=== PATIENT | female | born 1985 | race Caucasian/White ===

== ENCOUNTER 2018-09-04 18:40 | Inpatient (IN) | payer MEDICAID ==
[~2018-09-04] VITALS: Ht 167.6 cm; Wt 90.5 kg
[2018-09-10 13:25] VITALS: BP 129/76
== END 2018-09-10 15:17 | disposition home or self-care (01) | DRG 347 ==
LOC: ED 21:42 → EDIP 21:48 → 4NOR 22:17 → 4WST 09-07 19:38
PROVIDERS: ADMIT Internal Medicine; ATTEND Internal Medicine
PROC: 0T9B70Z Drainage of Bladder with Drainage Device, Via Natural or Artificial Opening (ICD-10-PCS; 2018-09-04)
PROC: 0JPT0WZ Removal of Totally Implantable Vascular Access Device from Trunk Subcutaneous Tissue and Fascia, Open Approach (ICD-10-PCS; principal; 2018-09-09)
DX: M43.16 Spondylolisthesis, lumbar region (principal); M35.2 Behcet's disease; E27.49 Other adrenocortical insufficiency; F11.20 Opioid dependence, uncomplicated; I48.91 Unspecified atrial fibrillation; M54.40 Lumbago with sciatica, unspecified side; E87.6 Hypokalemia; Z91.018 Allergy to other foods; Z88.8 Allergy status to other drugs, medicaments and biological substances; M45.9 Ankylosing spondylitis of unspecified sites in spine; K31.89 Other diseases of stomach and duodenum; R11.2 Nausea with vomiting, unspecified; F41.9 Anxiety disorder, unspecified; G47.00 Insomnia, unspecified; G89.29 Other chronic pain; J45.909 Unspecified asthma, uncomplicated; J98.11 Atelectasis; M06.9 Rheumatoid arthritis, unspecified; Z79.899 Other long term (current) drug therapy; Z82.49 Family history of ischemic heart disease and other diseases of the circulatory system; Z87.442 Personal history of urinary calculi; Z90.5 Acquired absence of kidney; Z76.5 Malingerer [conscious simulation]; Z90.49 Acquired absence of other specified parts of digestive tract; Z88.6 Allergy status to analgesic agent; Z88.1 Allergy status to other antibiotic agents
CPT/HCPCS: 36415; 36590; 70450; 71045; 71275; 72110; 77001; 80053; 80307; 81003; 83690; 84484; 85025; 85379; 85610; 85651; 86140; 93005; 94640; 96374; 99285; G0378; J1170; J1644; J1885; J2405; J2704; J3360; J7500; J7613; Q0162; Q9967; J2270; J7030

== ENCOUNTER 2018-09-17 10:02 | Emergency (ER) | payer MEDICAID ==
[~2018-09-17] VITALS: Ht 167.6 cm; Wt 84.0 kg
[~2018-09-17 10:02] MED LIST: ADVAIR; AZAT50TA9 PO; BUSP5TAB2 PO; DIAZ5TAB PO; DULO20CA45 PO; ESOM20CA PO; FLUO10CA13 PO; GABA300C10 PO; HYDR2TAB29 PO; HYDROCORTISONE PO; LEVA15HF4 INH; LORA-247 PO; METH500T7 PO; ZOLP10TA PO
[2018-09-17] MEDS ORDERED: SODIUM CHLORIDE 0.9% 1,000ML IVBOLUS ONE (11:00)
[2018-09-17] MEDS ORDERED: SODIUM CHLORIDE FLUSH 10ML SYR IVF ONE (11:00)
[2018-09-17] MEDS ORDERED: ONDANSETRON 2MG/ML, 2ML IVPush ONE (11:00)
--- NOTE | 2018-09-17 11:10 | NUR ---
LAB AT BEDSIDE
[2018-09-17 11:17] LABS: BASOPHILS # (AUTO) 0.04 x10^3/uL (0-0.1); BASOPHILS % (AUTO) 1 % (0-1); EOSINOPHILS % (AUTO) 1 % (1-7); LYMPHOCYTES # (AUTO) 1.24 x10^3/uL (1-3.4); LYMPHOCYTES % (AUTO) 17 % (22-44); MD NO; MEAN CORPUSCULAR HEMOGLOBIN 26.3 pg (27.0-34.8); MEAN CORPUSCULAR VOLUME 84.7 fL (80-100); MEAN PLATELET VOLUME 10.2 fL (7.4-10.4); MONOCYTES # (AUTO) 0.48 x10^3/uL (0.2-0.8); MONOCYTES % (AUTO) 7 % (2-9); NEUTROPHILS # (AUTO) 5.46 x10^3/uL (1.8-6.8); NEUTROPHILS % (AUTO) 75 % (42-75); PLATELET COUNT 317 x10^3/uL (130-400); RED BLOOD COUNT 4.63 x10^6/uL (3.82-5.3); RED CELL DISTRIBUTION WIDTH 16.2 % (9.6-15.2)
[2018-09-17 11:28] LABS: ALANINE AMINOTRANSFERASE 16 U/L (12-78); ALBUMIN 3.4 g/dL (3.4-5.0); ANION GAP 5 mmol/L (5-15); CALCIUM 8.8 mg/dL (8.5-10.1); CHLORIDE 110 mmol/L (98-107)
[2018-09-17] MEDS ORDERED: ONDANSETRON 2MG/ML, 2ML ONE (11:41)
--- NOTE | 2018-09-17 11:46 | NUR ---
LEFT ARM PIV PLACED W/ US -THEN MEDICATED PER EMAR
--- NOTE | 2018-09-17 11:50 | NUR ---
PATIENT VERY UNHAPPY WITH "THE TYPE OF CARE THIS SO CALLED MD IS GIVING ME. I'M IN IMMENSE PAIN. I NEED DIALUDID." MANAGER COMPETITIVE INTELLIGENCE RE-DIRECTED, PROVIDER MADE AWARE
[2018-09-17 12:09] LABS: ALKALINE PHOSPHATASE 82 U/L (45-117); BILIRUBIN,TOTAL 0.3 mg/dL (0.2-1.0); CREATININE 0.79 mg/dL (0.55-1.02); TOTAL PROTEIN 6.8 g/dL (6.4-8.2)
[2018-09-17 12:10] VITALS: BP 138/77
--- NOTE | 2018-09-17 12:20 | NUR ---
PATIENT ASKING FOR AMA PAPERWORK "I'LL GO TO [facility]. THEY ACTUALLY TREAT PAIN THERE." PROVIDER TO BEDSIDE PATIENT HAS HAD BLOOD WORK/ZOFRAN/IVF. REFUSED CT SCAN.
[2018-11-23] MEDS ORDERED: HYDR10TA PO (03:23)
[2018-11-23] MEDS ORDERED: HYDR20TA PO (03:23)
[2018-11-24] MEDS ORDERED: METO50TA82 PO (12:29)
== END 2018-09-17 12:46 | disposition left against medical advice (07) ==
LOC: ED 10:59
DX: R07.2 Precordial pain (principal); G89.29 Other chronic pain; R10.13 Epigastric pain; R55 Syncope and collapse; R06.02 Shortness of breath; M06.9 Rheumatoid arthritis, unspecified
CPT/HCPCS: 36415; 80053; 83690; 85025; 93005; 96361; 96374; 99284; J2405; J7030

== ENCOUNTER 2019-05-03 13:26 | Emergency (ER) | payer OTHER ==
[~2019-05-03] VITALS: Ht 167.6 cm; Wt 82.9 kg
[~2019-05-03 13:26] MED LIST changes: +HYDR10TA PO; +HYDR20TA PO; +METO50TA82 PO
[2019-05-03] MEDS ORDERED: SODIUM CHLORIDE FLUSH 10ML SYR IVF ONE (17:00)
--- NOTE | 2019-05-03 17:00 | NUR ---
BREAK RN: PT TO ROOM FROM LOBBY
[2019-05-03 17:14] LABS: BASOPHILS % (AUTO) 0 % (0-1); EOSINOPHILS % (AUTO) 1 % (1-7); LYMPHOCYTES # (AUTO) 1.09 x10^3/uL (1-3.4); LYMPHOCYTES % (AUTO) 14 % (22-44); MD NO; MEAN CORPUSCULAR HEMOGLOBIN 29.1 pg (27.0-34.8); MEAN CORPUSCULAR HGB CONC 33.1 g/dL (32.4-35.8); MEAN CORPUSCULAR VOLUME 87.9 fL (80-100); MEAN PLATELET VOLUME 9.5 fL (7.4-10.4); MONOCYTES # (AUTO) 0.41 x10^3/uL (0.2-0.8); MONOCYTES % (AUTO) 5 % (2-9); NEUTROPHILS # (AUTO) 6.13 x10^3/uL (1.8-6.8); NEUTROPHILS % (AUTO) 79 % (42-75); PLATELET COUNT 285 x10^3/uL (130-400); RED BLOOD COUNT 4.53 x10^6/uL (3.82-5.3); RED CELL DISTRIBUTION WIDTH 14.5 % (9.6-15.2)
[2019-05-03 17:23] LABS: ALANINE AMINOTRANSFERASE 22 U/L (12-78); ALBUMIN 3.8 g/dL (3.4-5.0); ANION GAP 8 mmol/L (5-15); CALCIUM 8.9 mg/dL (8.5-10.1); CHLORIDE 106 mmol/L (98-107)
[2019-05-03 17:28] LABS: ALKALINE PHOSPHATASE 117 U/L (45-117); BILIRUBIN,TOTAL 0.4 mg/dL (0.2-1.0); CREATININE 0.74 mg/dL (0.55-1.02); TOTAL PROTEIN 7.5 g/dL (6.4-8.2); TROPONIN I < 0.015 ng/mL (0.000-0.045)
--- NOTE | 2019-05-03 17:58 | NUR ---
Resting in [facility]. NAD. No needs.
[2019-05-03 18:48] VITALS: BP 118/76
--- NOTE | 2019-05-03 18:49 | NUR ---
VSS. No needs
--- NOTE | 2019-05-03 19:47 | NUR ---
Patient/Caregiver given discharge instructions and they have confirmed that they understand the instructions. Patient ambulatory with steady gait.
== END 2019-05-03 19:51 | disposition home or self-care (01) ==
LOC: ED 19:34
DX: R10.13 Epigastric pain (principal); R10.11 Right upper quadrant pain; R11.0 Nausea; I48.91 Unspecified atrial fibrillation; R94.31 Abnormal electrocardiogram [ECG] [EKG]; Z90.89 Acquired absence of other organs
CPT/HCPCS: 36415; 71045; 76700; 80053; 83880; 84484; 85025; 93005; 99285

== ENCOUNTER 2019-09-18 22:28 | Emergency (ER) | payer OTHER ==
[~2019-09-18] VITALS: Ht 167.6 cm; Wt 91.6 kg
[2019-09-18] MEDS ORDERED: ASPIRIN 81 MG TABLET CHEW ONE (22:58)
[2019-09-18] MEDS ORDERED: ONDANSETRON 2MG/ML, 2ML ONE (22:58)
[2019-09-18] MEDS ORDERED: MORPHINE SULFATE 4 MG/ML, 1ML ONE (22:58)
[2019-09-18] MEDS ORDERED: ASPIRIN 81 MG TABLET CHEW PO ONE (23:00)
[2019-09-18] MEDS ORDERED: ONDANSETRON 2MG/ML, 2ML IVPush ONE (23:00)
--- NOTE | 2019-09-18 23:09 | NUR ---
THIS IS A 33 YO FEMALE COMING IN FOR CHEST PAIN THAT CAME ON SUDDENLY AT 2100. "I FEEL LIKE THERE IS A BALLON IS INFLATING IN MY CHEST" , DESCRIBED PRESSURE WITH SHARP STABBING PAIN IN MIDDLE OF BACK. 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 ALL MONITORING IN PLACE, PATIENT C/O NAUSEA. A&OX4, VSS, NADN, CALL LIGHT IN REACH.
[2019-09-19] MEDS: MORPHINE SULFATE 4 MG/ML, 1ML IVPush PRN ×2 (00:04→00:43)
--- NOTE | 2019-09-19 00:05 | NUR ---
PIV PLACED, MEDICATED PER EMAR
[2019-09-19 00:21] LABS: ALANINE AMINOTRANSFERASE 16 U/L (12-78); ALBUMIN 3.2 g/dL (3.4-5.0); ANION GAP 8 mmol/L (5-15); CALCIUM 7.9 mg/dL (8.5-10.1); CHLORIDE 109 mmol/L (98-107)
[2019-09-19 00:22] LABS: BASOPHILS # (AUTO) 0.07 x10^3/uL (0-0.1); BASOPHILS % (AUTO) 1 % (0-1); EOSINOPHILS # (AUTO) 0.43 x10^3/uL (0-0.4); EOSINOPHILS % (AUTO) 6 % (1-7); LYMPHOCYTES # (AUTO) 1.31 x10^3/uL (1-3.4); LYMPHOCYTES % (AUTO) 18 % (22-44); MD NO; MEAN CORPUSCULAR HEMOGLOBIN 28.9 pg (27.0-34.8); MEAN CORPUSCULAR HGB CONC 32.6 g/dL (32.4-35.8); MEAN CORPUSCULAR VOLUME 88.5 fL (80-100); MEAN PLATELET VOLUME 10.4 fL (7.4-10.4); MONOCYTES # (AUTO) 0.52 x10^3/uL (0.2-0.8); MONOCYTES % (AUTO) 7 % (2-9); NEUTROPHILS # (AUTO) 4.89 x10^3/uL (1.8-6.8); NEUTROPHILS % (AUTO) 68 % (42-75); PLATELET COUNT 259 x10^3/uL (130-400); RED BLOOD COUNT 4.01 x10^6/uL (3.82-5.3); RED CELL DISTRIBUTION WIDTH 14.3 % (9.6-15.2)
[2019-09-19 00:26] LABS: ALKALINE PHOSPHATASE 95 U/L (45-117); BILIRUBIN,TOTAL 0.3 mg/dL (0.2-1.0); CREATININE 0.92 mg/dL (0.55-1.02); TOTAL PROTEIN 6.5 g/dL (6.4-8.2); TROPONIN I < 0.015 ng/mL (0.000-0.045)
[2019-09-19] MEDS ORDERED: MORPHINE SULFATE 4 MG/ML, 1ML ONE ×2 (00:36→02:17)
--- NOTE | 2019-09-19 00:44 | NUR ---
PATIENT MEDICATED PER EMAR FOR NO CHANGE IN PAIN. TOELRATED WELL. PATIENT TAKEN TO CT
[2019-09-19 01:21] VITALS: BP 109/40
--- NOTE | 2019-09-19 01:22 | NUR ---
PATIENT SITTING UP IN [facility], STATES PAIN IS NOW AT A 7/10 FROM A PREVIOUS 8-9/10. ERP NOTIFIED. MONITORING IN PLACE, CALL LIGHT IN REACH
[2019-09-19] MEDS ORDERED: ONDANSETRON 2MG/ML, 2ML ONE (01:50)
--- NOTE | 2019-09-19 01:54 | NUR ---
ALL RESULTS BACK AT THIS TIME, PATIENT UP FOR RECHECK
[2019-09-19] MEDS ORDERED: LORazepam 2 MG/ML, 1ML ONE (02:17)
[2019-09-19] MEDS ORDERED: OMNIPAQUE 350 MG/ML, 100ML BOTTLE ONE (02:26)
[2019-09-19] MEDS ORDERED: LORazepam 2 MG/ML, 1ML IVPush ONE (02:30)
[2019-09-19] MEDS ORDERED: MORPHINE SULFATE 4 MG/ML, 1ML IVPush ONE (02:30)
[2019-09-19] MEDS ORDERED: ONDANSETRON 2MG/ML, 2ML IVPush ONE (02:30)
--- NOTE | 2019-09-19 02:31 | NUR ---
PATIENT MEDICATED PER EMAR, TOLERATED WELL. GIVEN DISCHARGE PAPERWORK AND INSTRUCTIONS AND VERBALIZES UNDERSTANDING AND NEED FOR FOLLOW UP APPT. VSS UPON DISCHARGE. PIV REMOVED.
== END 2019-09-19 02:45 | disposition home or self-care (01) ==
LOC: ED 22:58
DX: R07.89 Other chest pain (principal); R00.0 Tachycardia, unspecified; R11.0 Nausea; I48.91 Unspecified atrial fibrillation; M06.9 Rheumatoid arthritis, unspecified; Z90.5 Acquired absence of kidney; Z90.89 Acquired absence of other organs; Z86.718 Personal history of other venous thrombosis and embolism
CPT/HCPCS: 36415; 71045; 71275; 80053; 84484; 84703; 85025; 93005; 96374; 96375; 96376; 99285; J2060; J2270; J2405; Q9967

== ENCOUNTER 2019-09-28 22:36 | Emergency (ER) | payer OTHER ==
[~2019-09-28] VITALS: Ht 167.6 cm; Wt 85.0 kg
[2019-09-28] MEDS ORDERED: MORPHINE SULFATE 4 MG/ML, 1ML ONE (22:48)
[2019-09-28] MEDS ORDERED: ONDANSETRON 2MG/ML, 2ML ONE (22:48)
[2019-09-28] MEDS ORDERED: SODIUM CHLORIDE FLUSH 10ML SYR IVF ONE (23:00)
[2019-09-28] MEDS ORDERED: ONDANSETRON 2MG/ML, 2ML IVPush ONE (23:00)
[2019-09-28] MEDS ORDERED: SODIUM CHLORIDE 0.9% 1,000ML IVBOLUS ONE (23:00)
[2019-09-28] MEDS: MORPHINE SULFATE 4 MG/ML, 1ML IVPush PRN (23:42)
[2019-09-28 23:45] LABS: BASOPHILS # (AUTO) 0.04 x10^3/uL (0-0.1); BASOPHILS % (AUTO) 0 % (0-1); EOSINOPHILS # (AUTO) 0.18 x10^3/uL (0-0.4); EOSINOPHILS % (AUTO) 2 % (1-7); LYMPHOCYTES # (AUTO) 1.51 x10^3/uL (1-3.4); LYMPHOCYTES % (AUTO) 15 % (22-44); MD NO; MEAN CORPUSCULAR HEMOGLOBIN 28.7 pg (27.0-34.8); MEAN CORPUSCULAR HGB CONC 32.8 g/dL (32.4-35.8); MEAN CORPUSCULAR VOLUME 87.6 fL (80-100); MEAN PLATELET VOLUME 9.9 fL (7.4-10.4); MONOCYTES % (AUTO) 7 % (2-9); NEUTROPHILS # (AUTO) 7.44 x10^3/uL (1.8-6.8); NEUTROPHILS % (AUTO) 75 % (42-75); PLATELET COUNT 336 x10^3/uL (130-400); RED BLOOD COUNT 4.37 x10^6/uL (3.82-5.3); RED CELL DISTRIBUTION WIDTH 14.3 % (9.6-15.2)
[2019-09-28 23:53] LABS: ALANINE AMINOTRANSFERASE 16 U/L (12-78); ALBUMIN 3.4 g/dL (3.4-5.0); ANION GAP 7 mmol/L (5-15); CALCIUM 8.5 mg/dL (8.5-10.1); CHLORIDE 109 mmol/L (98-107)
[2019-09-28 23:56] LABS: ALKALINE PHOSPHATASE 106 U/L (45-117); BILIRUBIN,TOTAL 0.4 mg/dL (0.2-1.0); CREATININE 0.86 mg/dL (0.55-1.02); TOTAL PROTEIN 7.2 g/dL (6.4-8.2)
--- NOTE | 2019-09-29 00:17 | NUR ---
Patient presents to ER c/o RUQ abd pain. Patient has an extensive medical hx and states gallbladder problems are one of them. Patient also c/o N/V. Symptoms started tonight. Patient states she ate dinner around 1830 then around 1900, the pain/cramping started. While waiting to be seen, patient experienced a syncopal episode from pain. Patient denies trauma. Patient is in obvious pain. Respirations even and unlabored.
[2019-09-29 00:45] VITALS: BP 127/80
[2019-09-29] MEDS ORDERED: MORPHINE SULFATE 4 MG/ML, 1ML ONE ×2 (00:47→01:45)
[2019-09-29] MEDS: MORPHINE SULFATE 4 MG/ML, 1ML IVPush PRN (00:49)
[2019-09-29] MEDS ORDERED: ONDANSETRON 2MG/ML, 2ML ONE (01:45)
--- NOTE | 2019-09-29 01:54 | NUR ---
Discharge instructions given. All questions and concerns addressed. Patient ambulatory with a steady gait. Belongings with patient.
[2019-09-29] MEDS ORDERED: MORPHINE SULFATE 4 MG/ML, 1ML IVPush ONE (02:00)
[2019-09-29] MEDS ORDERED: ONDANSETRON 2MG/ML, 2ML IVPush ONE (02:00)
== END 2019-09-29 02:05 | disposition home or self-care (01) ==
LOC: ED 09-29 01:16
DX: R10.11 Right upper quadrant pain (principal); R11.2 Nausea with vomiting, unspecified; M06.9 Rheumatoid arthritis, unspecified; I48.91 Unspecified atrial fibrillation; R94.31 Abnormal electrocardiogram [ECG] [EKG]; E66.9 Obesity, unspecified; Z68.30 Body mass index [BMI] 30.0-30.9, adult; Z90.5 Acquired absence of kidney; Z90.89 Acquired absence of other organs; Z86.718 Personal history of other venous thrombosis and embolism
CPT/HCPCS: 36415; 76700; 80053; 83690; 84703; 85025; 93005; 96361; 96374; 96375; 96376; 99285; J2270; J2405; J7030

== ENCOUNTER 2020-03-28 13:34 | Emergency (ER) | payer OTHER ==
[~2020-03-28] VITALS: Ht 167.6 cm; Wt 97.7 kg
[~2020-03-28 13:34] MED LIST changes: +METH-639 PO; -METH500T7 PO
[2020-03-28] MEDS ORDERED: HYDROcodone/APAP 5/325 TABLET PO PRN (14:30)
[2020-03-28] MEDS ORDERED: HYDROcodone/APAP 5/325 TABLET ONE (14:31)
[2020-03-28 16:03] VITALS: BP 135/87
== END 2020-03-28 16:15 | disposition home or self-care (01) ==
LOC: ED 16:09
DX: S63.511A Sprain of carpal joint of right wrist, initial encounter (principal); S80.812A Abrasion, left lower leg, initial encounter; M79.89 Other specified soft tissue disorders; W01.0XXA Fall on same level from slipping, tripping and stumbling without subsequent striking against object, initial encounter; Y93.89 Activity, other specified; Y92.89 Other specified places as the place of occurrence of the external cause; Y99.8 Other external cause status
CPT/HCPCS: 99283

== ENCOUNTER 2020-05-14 01:46 | Emergency (ER) | payer OTHER ==
[~2020-05-14] VITALS: Ht 167.6 cm; Wt 95.0 kg
[2020-05-14] MEDS ORDERED: SODIUM CHLORIDE 0.9% 1,000ML IVBOLUS ONE (02:00)
[2020-05-14] MEDS ORDERED: ONDANSETRON 2MG/ML, 2ML IVPush ONE (02:00)
[2020-05-14] MEDS ORDERED: SODIUM CHLORIDE FLUSH 10ML SYR IVF ONE (02:00)
[2020-05-14] MEDS ORDERED: ONDANSETRON 2MG/ML, 2ML ONE (02:10)
--- NOTE | 2020-05-14 02:19 | NUR ---
IV started blood drawn and sent, IVF wide open, medicated per order. Pt asking for valium, says thats the only thing that works for her nausea.
[2020-05-14 02:24] LABS: BASOPHILS % (AUTO) 1 % (0-1); EOSINOPHILS % (AUTO) 3 % (1-7); LYMPHOCYTES % (AUTO) 15 % (22-44); MEAN CORPUSCULAR HEMOGLOBIN 29.4 pg (27.0-34.8); MEAN CORPUSCULAR HGB CONC 33.7 g/dL (32.4-35.8); MEAN PLATELET VOLUME 9.4 fL (7.4-10.4); MONOCYTES % (AUTO) 7 % (2-9); NEUTROPHILS % (AUTO) 74 % (42-75); PLATELET COUNT 309 x10^3/uL (130-400); RED CELL DISTRIBUTION WIDTH 13.9 % (9.6-15.2)
[2020-05-14 02:28] LABS: MD NO
[2020-05-14 02:30] LABS: ALANINE AMINOTRANSFERASE 22 U/L (12-78); ALBUMIN 3.6 g/dL (3.4-5.0); ANION GAP 4 mmol/L (5-15); CALCIUM 8.7 mg/dL (8.5-10.1); CHLORIDE 106 mmol/L (98-107); CREATININE 0.79 mg/dL (0.55-1.02)
[2020-05-14 02:35] LABS: ALKALINE PHOSPHATASE 108 U/L (45-117); BILIRUBIN,TOTAL 0.2 mg/dL (0.2-1.0); TOTAL PROTEIN 7.7 g/dL (6.4-8.2); TROPONIN I < 0.015 ng/mL (0.000-0.045)
--- NOTE | 2020-05-14 03:09 | NUR ---
TASK RN. HYACINTH COLLECTED AND SENT TO LAB. PT UP TO BATHROOM WITH SBA.
[2020-05-14 03:23] LABS: MICROSCOPIC NOT IND
[2020-05-14 03:25] VITALS: BP 98/76
--- NOTE | 2020-05-14 04:02 | NUR ---
Patient/Caregiver given discharge instructions and they have confirmed that they understand the instructions. Patient ambulatory with steady gait.
== END 2020-05-14 04:03 | disposition home or self-care (01) ==
LOC: ED 03:52
DX: R11.2 Nausea with vomiting, unspecified (principal); R10.84 Generalized abdominal pain; R55 Syncope and collapse; R42 Dizziness and giddiness; M06.9 Rheumatoid arthritis, unspecified; I48.91 Unspecified atrial fibrillation
CPT/HCPCS: 36415; 70450; 80053; 80320; 81003; 83690; 84484; 84703; 85025; 93005; 96361; 96374; 99285; J2405; J7030; G0480

== ENCOUNTER 2020-10-30 11:40 | Emergency (ER) | payer OTHER ==
--- NOTE | 2020-10-30 12:00 | NUR ---
WITH ASSESSMENT LUNGS/ THROAT COMPLETELY CLEAR WHEN PATIENT ASKED QUESTIONS QUICKLY- UPPER AIRWAY NOISES NO LONGER AUDIBLE. SHUTTLE VENEERING SUPERVISOR SUSPICIOUS ERP TO BEDSIDE. TO MOVE TO LOW ACUITY ROOM
--- NOTE | 2020-10-30 12:29 | NUR ---
assuming care of pt after report from anum. pt moved to room 6. [facility].
[2020-10-30] MEDS ORDERED: DEXAMETHASONE 4 MG TABLET PO ONE (12:30)
[2020-10-30] MEDS ORDERED: DEXAMETHASONE 4 MG TABLET ONE (12:31)
[2020-10-30 12:44] LABS: BASOPHILS % (AUTO) 1 % (0-1); EOSINOPHILS % (AUTO) 1 % (1-7); LYMPHOCYTES % (AUTO) 17 % (22-44); MEAN CORPUSCULAR HEMOGLOBIN 28.5 pg (27.0-34.8); MEAN CORPUSCULAR HGB CONC 33.4 g/dL (32.4-35.8); MEAN PLATELET VOLUME 9.9 fL (7.4-10.4); MONOCYTES % (AUTO) 7 % (2-9); NEUTROPHILS % (AUTO) 73 % (42-75); PLATELET COUNT 288 x10^3/uL (130-400); RED BLOOD COUNT 4.62 x10^6/uL (3.82-5.3); RED CELL DISTRIBUTION WIDTH 14.3 % (9.6-15.2)
[2020-10-30 12:55] LABS: ALBUMIN 3.5 g/dL (3.4-5.0); ANION GAP 6 mmol/L (5-15); CHLORIDE 108 mmol/L (98-107)
[2020-10-30 13:02] LABS: CREATININE 0.78 mg/dL (0.55-1.02); TROPONIN I < 0.015 ng/mL (0.000-0.045)
--- NOTE | 2020-10-30 13:12 | NUR ---
pt with steady gait to bathroom. vss. saab
[2020-10-30] MEDS ORDERED: LEVOFLOXACIN 750 MG TABLET ONE (13:58)
[2020-10-30] MEDS ORDERED: POTASSIUM CHLORIDE 20 MEQ TAB.ER.PRT ONE (13:58)
[2020-10-30] MEDS ORDERED: POTASSIUM CHLORIDE 20 MEQ TAB.ER.PRT PO ONE (14:00)
[2020-10-30] MEDS ORDERED: LEVOFLOXACIN 750 MG TABLET PO ONE (14:00)
[2020-10-30 14:03] VITALS: BP 142/98
--- NOTE | 2020-10-30 14:54 | NUR ---
Patient given discharge instructions and they have confirmed that they understand the instructions. Patient ambulatory with steady gait. NAD, all questions answered appropriately, denies additional needs at this time. No personal belongings left in room after discharge.
== END 2020-10-30 14:55 | disposition home or self-care (01) ==
LOC: ED 14:30
DX: J15.9 Unspecified bacterial pneumonia (principal); R07.89 Other chest pain; I48.91 Unspecified atrial fibrillation
CPT/HCPCS: 36415; 70360; 71045; 80048; 82040; 84484; 85025; 93005; 99285

== ENCOUNTER 2020-10-31 06:48 | Inpatient (IN) | payer SELFPAY ==
[~2020-10-31] VITALS: Ht 167.6 cm; Wt 101.9 kg
--- NOTE | 2020-10-31 07:25 | NUR ---
PT BIB SELF D/T RECHECK AFTER BEING SEEN IN THIS ER YESTERDAY. PT STATES SHE ALSO IS HAVING SEVERE JOINT PAIN TODAY. PT HR 130S. PT REPORTS FEELING PAIN ALL OVER HER BODY AND FEELING VERY SHAKY. PT RESTING IN [facility], MONITORING IN PLACE, EKG DONE, NADN AT THIS TIME, WCTM.
[2020-10-31] MEDS ORDERED: LORazepam 2 MG/ML, 1ML IVPush ONE (07:30)
[2020-10-31] MEDS ORDERED: KETOROLAC 30 MG/1 ML IVPush ONE (07:30)
[2020-10-31] MEDS ORDERED: SODIUM CHLORIDE 0.9% 1,000ML IVBOLUS ONE (07:30)
[2020-10-31] MEDS ORDERED: ACETAMINOPHEN 325 MG TABLET PO ONE (07:30)
[2020-10-31] MEDS ORDERED: KETOROLAC 30 MG/1 ML ONE (07:46)
[2020-10-31] MEDS ORDERED: LORazepam 2 MG/ML, 1ML ONE (07:47)
[2020-10-31] MEDS ORDERED: ACETAMINOPHEN 325 MG TABLET ONE (07:47)
[2020-10-31 08:24] LABS: BASOPHILS % (AUTO) 0 % (0-1); EOSINOPHILS % (AUTO) 0 % (1-7); LYMPHOCYTES % (AUTO) 6 % (22-44); MEAN CORPUSCULAR HEMOGLOBIN 27.7 pg (27.0-34.8); MEAN CORPUSCULAR HGB CONC 32.6 g/dL (32.4-35.8); MEAN PLATELET VOLUME 9.8 fL (7.4-10.4); MONOCYTES % (AUTO) 4 % (2-9); NEUTROPHILS % (AUTO) 90 % (42-75); PLATELET COUNT 330 x10^3/uL (130-400); RED BLOOD COUNT 4.64 x10^6/uL (3.82-5.3); RED CELL DISTRIBUTION WIDTH 14.1 % (9.6-15.2)
[2020-10-31 08:30] LABS: ALANINE AMINOTRANSFERASE 24 U/L (12-78); ALBUMIN 3.6 g/dL (3.4-5.0); ANION GAP 9 mmol/L (5-15); CALCIUM 9.5 mg/dL (8.5-10.1); CHLORIDE 110 mmol/L (98-107); CREATININE 0.69 mg/dL (0.55-1.02)
[2020-10-31] MEDS ORDERED: LORazepam 1MG TABLET ONE (08:30)
[2020-10-31] MEDS ORDERED: LORazepam 1MG TABLET PO ONE (08:30)
[2020-10-31 08:35] LABS: ALKALINE PHOSPHATASE 108 U/L (45-117); BILIRUBIN,TOTAL 0.4 mg/dL (0.2-1.0); TOTAL PROTEIN 7.7 g/dL (6.4-8.2); TROPONIN I < 0.015 ng/mL (0.000-0.045)
[2020-10-31 08:59] LABS: FREE T4 (FREE THYROXINE) 0.89 ng/dL (0.76-1.46)
[2020-10-31] MEDS ORDERED: OMNIPAQUE 350 MG/ML, 75ML BOTTLE ONE (11:03)
[2020-10-31] MEDS ORDERED: ONDANSETRON 2MG/ML, 2ML ONE (11:34)
[2020-10-31] MEDS ORDERED: MORPHINE SULFATE 4 MG/ML, 1ML ONE ×2 (11:35→13:02)
[2020-10-31] MEDS: MORPHINE SULFATE 4 MG/ML, 1ML IVPush PRN ×3 (11:38→22:36)
[2020-10-31] MEDS ORDERED: ONDANSETRON 2MG/ML, 2ML IVPush ONE (12:00)
--- NOTE | 2020-10-31 12:05 | NUR ---
TASK RN NOTE: PT SITTING UP IN BED, RESPIRATIONS EVEN AND UNLABORED ON RA. PT TEXTING DAUGHTER, TELEVISION ON. NAD NOTED AT THIS TIME. CALL LIGHT IN REACH.
[2020-10-31] MEDS ORDERED: HYDROCORTISONE 10 MG TABLET PO ONE (12:10)
[2020-10-31 12:51] LABS: HCT (SEDRATE) 39.4 % (34.6-47.8)
[2020-10-31] MEDS ORDERED: ACETAMINOPHEN 325 MG TABLET PO PRN (14:00)
[2020-10-31] MEDS ORDERED: ENOXAPARIN 40 MG/0.4 ML SQ SCH (14:00)
[2020-10-31] MEDS ORDERED: MELATONIN 5 MG TABLET PO PRN (14:00)
[2020-10-31] MEDS ORDERED: ENALAPRILAT 1.25 MG/ML, 2ML IVPush PRN (14:00)
[2020-10-31] MEDS: LACTATED RINGERS 1,000 ML IV SCH (14:00)
[2020-10-31] MEDS ORDERED: POLYETHYLENE GLYCOL 17 GM PACKET PO PRN (14:00)
[2020-10-31 14:26] VITALS: BP 114/74
--- NOTE | 2020-10-31 14:30 | NUR ---
PATIENT TRANSFERRED TO CARDIAC TELE IN STABLE CONDITION VIA GURNEY WITH COMMODITY BUYER. ALL PATIENT BELONGINGS TAKEN TO FLOOR WITH PATIENT.
[2020-10-31] MEDS ORDERED: MORPHINE SULFATE 4 MG/ML, 1ML IVPush PRN (16:30)
[2020-10-31 16:49] LABS: MICROSCOPIC NOT IND
[2020-10-31] MEDS: ONDANSETRON 2MG/ML, 2ML IVPush PRN (20:57)
[2020-10-31 21:34] VITALS: BP 115/79
[2020-10-31] MEDS ORDERED: ZOLPIDEM 10MG TABLET PO PRN (22:30)
[2020-11-01] MEDS ORDERED: AMIT150T PO (00:14)
[2020-11-01] MEDS ORDERED: AMITRIPTYLINE 75 MG TABLET PO ONE (01:00)
[2020-11-01 02:32] VITALS: BP 137/74
[2020-11-01] MEDS: LACTATED RINGERS 1,000 ML IV SCH (02:49)
[2020-11-01] MEDS: MORPHINE SULFATE 4 MG/ML, 1ML IVPush PRN ×2 (02:50→07:02)
[2020-11-01] MEDS: ONDANSETRON 2MG/ML, 2ML IVPush PRN ×2 (02:50→09:03)
[2020-11-01 06:01] LABS: BASOPHILS % (AUTO) 0 % (0-1); EOSINOPHILS % (AUTO) 1 % (1-7); LYMPHOCYTES % (AUTO) 11 % (22-44); MEAN CORPUSCULAR HEMOGLOBIN 28.3 pg (27.0-34.8); MEAN CORPUSCULAR HGB CONC 32.9 g/dL (32.4-35.8); MEAN PLATELET VOLUME 9.6 fL (7.4-10.4); MONOCYTES % (AUTO) 10 % (2-9); NEUTROPHILS % (AUTO) 78 % (42-75); PLATELET COUNT 262 x10^3/uL (130-400); RED BLOOD COUNT 4.17 x10^6/uL (3.82-5.3); RED CELL DISTRIBUTION WIDTH 14.2 % (9.6-15.2)
[2020-11-01 06:07] LABS: ALANINE AMINOTRANSFERASE 58 U/L (12-78); ALBUMIN 3.1 g/dL (3.4-5.0); ANION GAP 8 mmol/L (5-15); CALCIUM 8.2 mg/dL (8.5-10.1); CHLORIDE 107 mmol/L (98-107)
[2020-11-01 06:10] LABS: ALKALINE PHOSPHATASE 107 U/L (45-117); BILIRUBIN,TOTAL 0.7 mg/dL (0.2-1.0); TOTAL PROTEIN 6.4 g/dL (6.4-8.2)
[2020-11-01] MEDS ORDERED: DULOXETINE 20 MG CAPSULE.DR PO SCH (09:00)
[2020-11-01] MEDS ORDERED: METOPROLOL TARTRATE 50 MG TAB PO SCH (09:00)
[2020-11-01] MEDS ORDERED: GABAPENTIN 300 MG CAPSULE PO SCH (09:00)
[2020-11-01] MEDS ORDERED: METHOCARBAMOL 500 MG TABLET PO SCH (09:00)
[2020-11-01] MEDS ORDERED: HYDROCORTISONE 10 MG TABLET PO SCH (09:00)
[2020-11-01] MEDS ORDERED: AZATHIOPRINE 50 MG TABLET PO SCH (09:00)
[2020-11-01] MEDS ORDERED: FLUOXETINE 10 MG CAP PO SCH (09:00)
[2020-11-01 09:01] VITALS: BP 105/72
[2020-11-01] MEDS ORDERED: ACET325T26 PO (11:17)
[2020-11-01 13:22] VITALS: BP 109/76
[2020-11-01] MEDS ORDERED: HYDROCORTISONE 5 MG TABLET PO SCH (14:00)
== END 2020-11-01 13:59 | disposition home or self-care (01) | DRG 206 ==
LOC: ED 07:35 → EDIP 12:11 → 5SO 14:27
PROVIDERS: ADMIT Internal Medicine; ATTEND Internal Medicine
PROC: 02HV33Z Insertion of Infusion Device into Superior Vena Cava, Percutaneous Approach (ICD-10-PCS; principal; 2020-10-31)
PROC: B548ZZA Ultrasonography of Superior Vena Cava, Guidance (ICD-10-PCS; 2020-10-31)
DX: J98.8 Other specified respiratory disorders (principal); R00.0 Tachycardia, unspecified; G89.4 Chronic pain syndrome; I48.91 Unspecified atrial fibrillation; J45.909 Unspecified asthma, uncomplicated; M19.90 Unspecified osteoarthritis, unspecified site; Z20.822 Contact with and (suspected) exposure to COVID-19; D72.829 Elevated white blood cell count, unspecified; M79.10 Myalgia, unspecified site; R74.01 Elevation of levels of liver transaminase levels; M06.9 Rheumatoid arthritis, unspecified; Z90.5 Acquired absence of kidney; Z90.49 Acquired absence of other specified parts of digestive tract
CPT/HCPCS: 36415; 36573; 71045; 71275; 80053; 81003; 83735; 84100; 84145; 84439; 84443; 84481; 84484; 84550; 84703; 85025; 85651; 86430; 93005; 99285; G0378; J1650; J2405; J7500; Q9967; U0005; C1751; J2270; J7030; J7120; U0003

== ENCOUNTER 2020-11-07 11:31 | Emergency (ER) | payer OTHER ==
[~2020-11-07] VITALS: Ht 167.6 cm; Wt 94.1 kg
[~2020-11-07 11:31] MED LIST changes: +ACET325T26 PO; +AMIT150T PO
--- NOTE | 2020-11-07 11:40 | NUR ---
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
--- NOTE | 2020-11-07 11:45 | NUR ---
patient arrives sent by dr [facility]in [facility] for hr 135, chest pain, nausea, chest pressure. 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
[2020-11-07 12:13] LABS: BASOPHILS % (AUTO) 1 % (0-1); EOSINOPHILS % (AUTO) 1 % (1-7); LYMPHOCYTES % (AUTO) 15 % (22-44); MEAN CORPUSCULAR HEMOGLOBIN 28.2 pg (27.0-34.8); MEAN CORPUSCULAR HGB CONC 33.4 g/dL (32.4-35.8); MEAN PLATELET VOLUME 9.1 fL (7.4-10.4); MONOCYTES % (AUTO) 7 % (2-9); NEUTROPHILS % (AUTO) 76 % (42-75); PLATELET COUNT 328 x10^3/uL (130-400); RED BLOOD COUNT 4.91 x10^6/uL (3.82-5.3); RED CELL DISTRIBUTION WIDTH 13.8 % (9.6-15.2)
[2020-11-07 12:26] LABS: ALANINE AMINOTRANSFERASE 26 U/L (12-78); ALBUMIN 3.8 g/dL (3.4-5.0); ANION GAP 9 mmol/L (5-15); CALCIUM 9.1 mg/dL (8.5-10.1); CHLORIDE 107 mmol/L (98-107); CREATININE 0.71 mg/dL (0.55-1.02)
--- NOTE | 2020-11-07 12:26 | NUR ---
placed on oxygen
[2020-11-07 12:30] LABS: ALKALINE PHOSPHATASE 119 U/L (45-117); BILIRUBIN,TOTAL 0.6 mg/dL (0.2-1.0); TOTAL PROTEIN 8.1 g/dL (6.4-8.2); TROPONIN I < 0.015 ng/mL (0.000-0.045)
[2020-11-07] MEDS ORDERED: SODIUM CHLORIDE 0.9% 1,000ML IVBOLUS ONE (12:30)
[2020-11-07] MEDS ORDERED: KETOROLAC 30 MG/1 ML ONE (12:52)
[2020-11-07] MEDS ORDERED: MORPHINE SULFATE 4 MG/ML, 1ML ONE (12:52)
[2020-11-07] MEDS ORDERED: ONDANSETRON 2MG/ML, 2ML ONE (12:52)
[2020-11-07] MEDS ORDERED: ONDANSETRON 2MG/ML, 2ML IVPush ONE (13:00)
[2020-11-07] MEDS ORDERED: KETOROLAC 30 MG/1 ML IVPush ONE (13:00)
[2020-11-07] MEDS ORDERED: MORPHINE SULFATE 4 MG/ML, 1ML IVPush PRN (13:00)
--- NOTE | 2020-11-07 14:06 | NUR ---
helped patient walk to bathroom, no complications. she continues to have pain and wants pain medications - will let md know. back on monitor rails up.
[2020-11-07] MEDS ORDERED: HYDROmorphone 2 MG/ML, 1ML ONE (14:21)
[2020-11-07] MEDS ORDERED: HYDROmorphone 1 MG/ML, 1ML INJ IV ONE (14:30)
[2020-11-07] MEDS ORDERED: SODIUM CHLORIDE 0.9% 100 ML IV SCH (14:30)
--- NOTE | 2020-11-07 14:31 | NUR ---
patient given dilaudid diluted in 100ml ns. patient states pain in chest and back. on monitor, rails up, getting dilaudid over 20 minutes
[2020-11-07 15:07] VITALS: BP 119/75
--- NOTE | 2020-11-07 15:08 | NUR ---
patient discharge reviewed, shows understanding. picking up, instructed not drive.
[2020-11-08] MEDS ORDERED: SODIUM CHLORIDE 0.9% 100 ML IV SCH (14:30)
== END 2020-11-07 15:19 | disposition home or self-care (01) ==
LOC: ED 11:36
DX: R07.89 Other chest pain (principal); R00.0 Tachycardia, unspecified; M13.0 Polyarthritis, unspecified; R11.10 Vomiting, unspecified; I48.91 Unspecified atrial fibrillation; M06.9 Rheumatoid arthritis, unspecified
CPT/HCPCS: 36415; 71045; 80053; 84484; 85025; 93005; 96361; 96374; 96375; 99285; J1170; J1885; J2270; J2405; J7030